=== PATIENT | female | born 1950 | race Two or more races ===

== ENCOUNTER → 2017-12-04 08:40 | Outpatient (CLI) | payer OTHER ==
[~2017-12-04] VITALS: Ht 152.4 cm; Wt 56.7 kg
[~2017-12-04 08:40] MED LIST: VOLTAREM 75 MG PO
== END | disposition home or self-care (01) ==
LOC: PPHC 08:40
DX: R42 Dizziness and giddiness (principal)

== ENCOUNTER 2017-12-04 11:53 | Outpatient (CLI) | payer OTHER | END 2017-12-04 13:16 | disposition home or self-care (01) | LOC: TOM 11:53 | DX: G90.01 Carotid sinus syncope (principal) ==

== ENCOUNTER → 2017-12-04 12:29 | Outpatient (CLI) | payer OTHER | END | disposition home or self-care (01) | LOC: EKG 12:29 | DX: G90.01 Carotid sinus syncope (principal) ==

== ENCOUNTER 2017-12-05 13:18 | Outpatient (CLI) | payer OTHER | END 2017-12-05 13:32 | disposition home or self-care (01) | LOC: NUCLEAR 13:18 | DX: G90.01 Carotid sinus syncope (principal) ==

== ENCOUNTER → 2017-12-07 | Outpatient (CLI) | payer OTHER ==
[~2017-12-07] VITALS: Ht 152.4 cm; Wt 58.1 kg
== END | disposition home or self-care (01) ==
LOC: PPHC 09:20
DX: R42 Dizziness and giddiness (principal)